=== PATIENT | female | born 1940 ===

== ENCOUNTER 2019-06-22 21:35 | Outpatient (REF) | payer MEDICARE, SELFPAY ==
[2019-06-22 19:45] LABS: Bilirubin Negative (Negative); Blood Trace-intact (Negative); Clarity Clear (Clear); Glucose Negative (Negative); Ketones Negative (Negative); Leukocyte Esterase Negative (Negative); Nitrite Negative (Negative); Urobilinogen 0.2 EU/dL (Up TO 0.2); pH 5.5 (5-8)
[2019-06-22 19:51] LABS: WBC Negative HPF (0-5)
[2019-06-22 19:52] LABS: Bacteria Rare HPF (Negative); Crystals Negative HPF (Negative); Epithelial Cells Negative HPF (Negative); Mucus Negative (Negative); Other Cells Negative (Negative); RBC 0-2 (0-2)
[2019-06-22 19:53] LABS: C & S Indicated? No; Casts Negative LPF (Negative)
== END 2019-06-22 21:55 ==
LOC: NCHCN 21:35
PROVIDERS: PCP Nurse Practitioner Family; Visit Provider Nurse Practitioner Family
DX: N89.8 Other specified noninflammatory disorders of vagina (principal); N39.0 Urinary tract infection, site not specified
CPT/HCPCS: 81003; 81015; 87480; 87510; 87660

== ENCOUNTER 2020-09-30 16:06 | Outpatient (REF) | payer MEDICARE, SELFPAY ==
[2020-09-30 19:14] LABS: TSH 2.55 uIU/mL (0.36-3.74)
== END 2020-09-30 16:07 | disposition home or self-care (01) ==
LOC: NCHCN 16:06
PROVIDERS: PCP Nurse Practitioner Family; Visit Provider Internal Medicine
DX: Z83.49 Family history of other endocrine, nutritional and metabolic diseases (principal); Z13.29 Encounter for screening for other suspected endocrine disorder
CPT/HCPCS: 84443

== ENCOUNTER 2022-11-30 19:08 | Outpatient (REF) | payer MEDICARE, SELFPAY ==
--- OUTSIDE RECORDS SUMMARY | 2022-11-30 19:11 | XMS_ITS | CCD ---
Author Name Unknown Address [address] [place] [address] [id number] Organization Unknown Address [address] [place] [address] [id number] Care Team Providers Care Substitute Bus Driver Name Role Phone ANNA PONCE Attending Physician [phone] Vital Signs Vital Sign Value Unit Date/Time Recent/Initial ? BMI (Body Mass Index) 26.07 kg/m^2 05/12/2022 14: 50 Initial VS Weight Measured 138 lbs 05/12/2022 14:50 Ini tial VS Height 61 in 05/12/2022 14:50 Initial VS BSA (Body Surface Area) 1.64 m^2 05/12/2022 1 4:50 Initial VS BP Systolic 102 mmHg 05/21/2022 11:06 Initial VS BP Diastolic 64 mmHg 05/21/2022 11:06 Initia l VS Respiratory Rate 16 bpm 05/21/2022 11:06 In itial VS Heart Rate 62 bpm 05/21/2022 11:06 Initial VS O2 % BldC Oximetry 92 % 05/21/2022 11:06 Initial VS Body Temperature 36 degrees 05/21/2022 11:06 In itial VS Allergies Allergy Code Allergy Type Reaction Status No Known Allergies 0 No known allergies Active Procedures Procedure Code Procedure Type Date Arthroplasty, Glenohumeral Joint; Total Shoulder 77080 CPT 05/21/2022 Muscle Transfer, Any Type, Shoulder/Upper Arm; Single 26482 CPT 05/21/2022 Injection Anesthetic Agent a nd/or Steroid; Brachial Plexus 14235 CPT 05/21/2022 Anesthesia, Open/Surg Arthro scopic Proc, Humeral Head & Neck, Sternoclav/Ac/Shoulder Jt; Replacemen 83619 CPT 05/21/2022 History of Immunizations Unknown or Not Available. Problems Unknown or Not Available. Results Unknown or Not Available. Active Medications Medications Administered During Visit Medication Dose Units Frequency Route Date/Time of Last Dose LACTATED RINGERS 1000ML 1000 ML X1 05/21/2022 06:59 CeFAZolin IVPB FROZEN PREMIX : 2GM/100ML 2 GM X1 05/21/2022 07:5 3 PREGABALIN CAPSULE: 50MG 100 MG X1 PO 05/21/2022 06:58 CELECOXIB CAPSULE: 100MG 200 MG X1 PO 05/21/2022 06:57 MIDAZOLAM INJ SDV: 2MG/2ML 2 MG X1 IVP 05/21/2022 07:27 ONDANSETRON INJ SDV: 4MG/2ML 4 MG PRN IN PACU X1 IVP 05/21/2022 12:34 Encounters Encounter Diagnosis Diagnosis Code Start Date Other specific arthropathies , not elsewhere classified, right shoulder [id number] 05/21/2022 Social History Smoking Status Code Start Date End Date Former smoker [id number] 08/16/1958 08/16/1980 Patient Decision Aids Unknown or Not Available. Discharge Instructions You were admitted to [facility] on 05/21/2022 06:11 with a principal diagnosis of Other specific arthropathies, not elsewhere classified, right shoulder You had the following procedures done:Arthroplasty, Glenohumeral Joint; Total ShoulderMuscle Transfer, Any Type, Shoulder/Upper Arm; SingleInjection Anesthetic Agent and/or Steroid; Brachial PlexusAnesthesia, Open/Surg Arthroscopic Proc, Humeral Head & Neck, Sternoclav/Ac/Shoulder Jt; Replacemen You were discharged from [facility] on 05/21/2022 14:25 Should you have any questions prior to discharge, please contact a member of your healthcare team. If you have left the hospital and have any questions, please contact your primary care physician. Chief Complaint and Reason For Visit Chief Complaint Date of Onset R SHOULDER TOTAL REVERSE W/ LATIS TENDON TRANSFER 150 MIN OP Function Status Unknown or Not Available. Plan of Care Unknown or Not Available. Referral/Transition of Care Unknown or Not Available.
--- OUTSIDE RECORDS SUMMARY | 2022-11-30 19:11 | XMS_ITS | CCD ---
Author Name Unknown Address [address] [place] [address] [id number] Organization Unknown Address [address] [place] [address] [phone] Care Team Providers Care Vineyard Supervisor Name Role Phone SERVANDO LOGAN Attending Physician [phone] SERVANDO LOGANing (Secondary) Physician [phone] Vital Signs Unknown or Not Available. Allergies Allergy Code Allergy Type Reaction Status No Known Allergies 0 No known allergies Active Procedures Unknown or Not Available. History of Immunizations Unknown or Not Available. Problems Unknown or Not Available. Results Unknown or Not Available. Active Medications Unknown or Not Available. Medications Administered During Visit Unknown or Not Available. Encounters Encounter Diagnosis Diagnosis Code Start Date Injury of right shoulder [id number] 08/20 Social History Smoking Status Code Start Date End Date Former smoker [id number] 08/16/1958 08/16/1980 Patient Decision Aids Unknown or Not Available. Discharge Instructions You were admitted to [facility] on 08/20/2021 14:50 with a principal diagnosis of Injury of right shoulder You were discharged from [facility] on 08/20/2021 00:00 Should you have any questions prior to discharge, please contact a member of your healthcare team. If you have left the hospital and have any questions, please contact your primary care physician. Chief Complaint and Reason For Visit Unknown or Not Available. Function Status Unknown or Not Available. Plan of Care Unknown or Not Available. Referral/Transition of Care Unknown or Not Available.
--- OUTSIDE RECORDS SUMMARY | 2022-11-30 19:11 | XMS_ITS | CCD ---
Author Name Unknown Address [address] [place] [address] [phone] Organization Unknown Address [address] [place] [address] [phone] Care Team Providers Care Slip Laster Name Role Phone ANNA PONCE Attending Physician [phone] Vital Signs Unknown or Not Available. Allergies Allergy Code Allergy Type Reaction Status No Known Allergies 0 No known allergies Active Procedures Unknown or Not Available. History of Immunizations Unknown or Not Available. Problems Unknown or Not Available. Results BASIC METABOLIC PANEL (BMP) - Collect Date/Time: 05/08/2022 13:50 Test Name Code Test Result Test Units Test Ref Rang e GLUCOSE 2345-7 104 mg/dL L=70 H=116 BUN 3094-0 18 mg/dL L=6 H=25 CREATININE 2160-0 0.93 mg/dL L=0.51 H=0.95 SODIUM SERUM 2951-2 137 mmol/L L=136 H=145 POTASSIUM SERUM 2823-3 4.0 mmol/L L=3.4 H=5 .2 CHLORIDE SERUM 2075-0 101 mmol/L L=96 H=110 CARBON DIOXIDE (CO2) 2028-9 29 mmol/L L=22 H=34 ANION GAP 17106-4 7.4 mmol/L CALCIUM SERUM 85449-6 9.3 mg/dL L=8.2 H=10. 2 AGE 81 years eGFR (non-Afr.Amer.) 07728-4 58 mL/min eGFR (Afr-Peruvian) 01019-7 70 mL/min C REACTIVE PROTEIN HIGH SENS ITIVITY* - Collect Date/Time: 05/08/2022 13:50 Test Name Code Test Result Test Units Test Ref Rang e CRP-HIGH SENS. 52188-8 3.54 mg/L L=0.00 H=3 .00 CRP-HIGH SENS 71192-8 0.35 mg/dL L=0.00 H=0. 30 CBC W/ DIFFERENTIAL* - [facility] ct Date/Time: 05/08/2022 13:50 Test Name Code Test Result Test Units Test Ref Rang e WBC 6690-2 3.77 th/cmm L=5.00 H=10.00 NEUT % 60.9 % L=40.0 H=80.0 LYMPH % 26.3 % L=10.0 H=50.0 MONO % 80222-3 9.0 % L=2.0 H=12.0 EOS % 2.7 % L=0.0 H=8.0 BASO % 0.8 % L=0.0 H=3.0 IG % 2514-8 0.3 % L=0.0 H=1.1 NRBC % 24498-8 0.0 % L=0.0 H=0.0 NEUT abs count 751-8 2.3 th/cmm L=1.6 H=8. 4 LYMPH abs count 731-0 1.0 th/cmm L=1.5 H=4 .0 MONO abs count 742-7 0.3 th/cmm L=0.2 H=1. 0 EOS abs count 711-2 0.1 th/cmm L=0.0 H=0.5 BASO abs count 704-7 0.0 th/cmm L=0.0 H=0. 2 IG abs count 79185-2 0.0 th/cmm L=0.0 H=0.1 NRBC abs count 93072-8 0.0 mil/cmm L=0.0 H=0. 0 RBC 789-8 3.68 mil/cmm L=3.90 H=5.40 HEMOGLOBIN 718-7 11.7 gm/dL L=12.0 H=16.0 HEMATOCRIT 4544-3 36 % L=37 H=47 MCV 787-2 97 fL L=82 H=92 MCH 785-6 31.8 pg L=27.0 H=31.0 MCHC 786-4 33.0 % L=32.0 H=36.0 RDW-SD 788-0 50.5 fL L=39.0 H=49.0 PLATELET COUNT 777-3 226 th/cmm L=150 H=45 0 SED RATE* - Collect Date/Fracisco e: 05/08/2022 13:50 Test Name Code Test Result Test Units Test Ref Rang e SED. RATE 4537-7 12 mm/hr L=0 H=30 MRSA/MSSA NASAL COMPLETE BY PCR* - Collect Date/Time: 05/08/2022 13:50 Test Name Code Test Result Test Units Test Ref Rang e MRSA 65865-4 NEGATIVE N/A Normal: Negati ve MSSA NEGATIVE N/A Normal: Negati ve Active Medications Unknown or Not Available. Medications Administered During Visit Unknown or Not Available. Encounters Encounter Diagnosis Diagnosis Code Start Date Encounter for other preprocedural examination Z0 1818 05/08/2022 Social History Smoking Status Code Start Date End Date Former smoker [id number] 08/16/1958 08/16/1980 Patient Decision Aids Unknown or Not Available. Discharge Instructions You were admitted to [facility] on 05/08/2022 13:20 with a principal diagnosis of Encounter for other preprocedural examination You had the following tests done:BASIC METABOLIC PANEL (BMP)C REACTIVE PROTEIN HIGH SENSITIVITY*CBC W/ DIFFERENTIAL*MRSA/MSSA NASAL COMPLETE BY PCR*SED RATE* You were discharged from [facility] on 05/08/2022 13:20 Should you have any questions prior to discharge, please contact a member of your healthcare team. If you have left the hospital and have any questions, please contact your primary care physician. Chief Complaint and Reason For Visit Chief Complaint Date of Onset L SHLDR ARTHRITIS PREOP BLUEPRINT Function Status Unknown or Not Available. Plan of Care Unknown or Not Available. Referral/Transition of Care Unknown or Not Available.
--- OUTSIDE RECORDS SUMMARY | 2022-11-30 19:11 | XMS_ITS | CCD ---
Author Name Unknown Address [address] [place] [address] [phone] Organization Unknown Address [address] [place] [address] [phone] Care Team Providers Care Horticultural Agent Name Role Phone EILEEN JOSEPH Attending Physician [phone] EILEEN JOSEPH Rounding (Secondary) Physician [phone] Vital Signs Unknown or Not Available. Allergies [...] Encounters Encounter Diagnosis Diagnosis Code Start Date Aftercare [id number] 06/02/2022 Social History Smoking Status Code Start Date End Date Former smoker [id number] 08/16/1956 08/16/1980 Patient Decision Aids Unknown or Not Available. Discharge Instructions You were admitted to [facility] on 06/02/2022 14:05 with a principal diagnosis of Aftercare following joint replacement surgery You were discharged from [facility] on 06/02/2022 00:00 Should you have any questions prior [...]
--- OUTSIDE RECORDS SUMMARY | 2022-11-30 19:11 | XMS_ITS | CCD ---
Author Name Unknown Address [address] [place] [address] [id number] Organization Unknown Address [address] [place] [address] [phone] Care Team Providers Care Associate Theatre Professor Name Role Phone SERVANDO LOGAN Attending Physician [phone] SERVANDO LOGANing (Secondary) Physician [phone] Vital Signs Unknown or Not Available. Allergies [...] Encounters Encounter Diagnosis Diagnosis Code Start Date Full thickness rotator cuff tear [id number] 10/15/2021 Social History Smoking Status Code Start Date End Date Former smoker [id number] 08/16/1958 08/16/1980 Patient Decision Aids Unknown or Not Available. Discharge Instructions You were admitted to [facility] on 10/15/2021 10:03 with a principal diagnosis of Complete rotator cuff tear or rupture of right shoulder, not specified as traumatic You were discharged from [facility] on 10/15/2021 00:00 Should you have any questions prior [...]
--- OUTSIDE RECORDS SUMMARY | 2022-11-30 19:11 | XMS_ITS | CCD ---
Author Name Unknown Address [address] [place] [address] [id number] Organization Unknown Address [address] [place] [address] [phone] Care Team Providers Care Sharepoint Solutions Developer Name Role Phone ANNA PONCE Attending Physician [phone] ANNA PONCE Rounding (Secondary) Physician [phone] Vital Signs Unknown or Not Available. Allergies [...] Encounters Encounter Diagnosis Diagnosis Code Start Date Shoulder joint prosthesis present [id number] 11/09/2022 Social History Smoking Status Code Start Date End Date Former smoker [id number] 08/16/1958 08/16/1980 Patient Decision Aids Unknown or Not Available. Discharge Instructions You were admitted to [facility] on 11/09/2022 12:35 with a principal diagnosis of Presence of right artificial shoulder joint You were discharged from [facility] on 11/09/2022 00:00 Should you have any questions prior [...]
--- OUTSIDE RECORDS SUMMARY | 2022-11-30 19:12 | XMS_ITS | Continuity of Care Document ---
Author Name Unknown Organization [facility] Address [address] [place] [address] Care Team Providers Care Environmental Services Specialist Name Role Phone Abhishek Morales Primary Care Physician Encounter [id number] Date(s): 05/21/22 - 06/26/[address] [address] Discharge Disposition: Home or Self Care Attending Physician: Laura Cavazos MD Admitting Physician: Laura Cavazos MD Referring Physician: Laura Cavazos MD Allergies, Adverse Reactions, Alerts No Known Medication Allergies Immunizations Given and Recorded Vaccine Date Status Refusal Reason influenza virus vaccine, inactivated 06/08/14 Deshawn rded influenza virus vaccine, inactivated 06/09/13 Deshawn rded influenza virus vaccine, inactivated 06/10/12 Deshawn rded influenza virus vaccine, inactivated 06/19/11 Deshawn rded influenza virus vaccine, inactivated 06/27/10 Deshawn rded influenza virus vaccine, inactivated 06/08/08 Deshawn rded influenza virus vaccine, inactivated 05/16/07 Deshawn rded influenza virus vaccine, inactivated 12/15/03 Deshawn rded influenza virus vaccine, inactivated 08/16/00 Deshawn rded zoster vaccine live 02/23/13 Recorded tetanus/diphth/pertuss (Tdap) adult/adol 01/26/12 Recorded pneumococcal 23-polyvalent vaccine 07/16/05 Record ed tetanus-diphth toxoids (Td) adult/adol 12/15/03 Re corded Social History Social History Type Response Sex Female Patient Care team information Care Team Personnel Name: Abhishek Morales MD Position: Physician Member Role: Primary Care Physician Address: Address: [facility] [address] [place] [address]- Care Team Related Persons Name: ARSEN CHOPRA Address: Home Name: DANIEL CHOPRA Address: Home [address], [place] [id number] Name: SAFIA CHOPRA Address: Home
--- OUTSIDE RECORDS SUMMARY | 2022-11-30 19:12 | XMS_ITS | CCD ---
Author Name Unknown Address [address] [place] [address] [phone] Organization Unknown Address [address] [place] [address] [phone] Care Team Providers Care Machine Maintenance Mechanic Name Role Phone ANNA PONCE Attending Physician [phone] ANNA PONCE Rounding (Secondary) Physician [phone] Vital Signs Unknown or Not Available. Allergies [...] Start Date Full thickness rotator cuff tear [id number] 01/28/2022 Social History Smoking Status Code Start Date End Date Former smoker [id number] 08/16/1958 08/16/1980 Patient Decision Aids Unknown or Not Available. Discharge Instructions You were admitted to [facility] on 01/28/2022 15:59 with a principal diagnosis of Complete rotator cuff tear or rupture of right shoulder, not specified as traumatic You were discharged from [facility] on 01/28/2022 00:00 Should you have any questions prior [...]
[2022-11-30 20:13] LABS: Anion Gap 5.7 mmol/L (3-11); BUN 16 mg/dL (7-18); CO2 29.3 mmol/L (21.0-32.0); CREATININE 1.1 mg/dL (0.55-1.02); Calcium 9.3 mg/dL (8.5-10.1); Calculated LDL 92 mg/dL (<100); Chloride 104 mmol/L (98-107); Cholesterol 187 mg/dL (<200); Glucose 100 mg/dL (74-106); HDL Cholesterol 62 mg/dL (40-60); Potassium 4.3 mmol/L (3.5-5.1); Sodium 139 mmol/L (136-145); Triglyceride 169 mg/dL (<150); Troponin I < 50 ng/L (<or=60)
== END 2022-11-30 19:09 | disposition home or self-care (01) ==
LOC: NCHCN 19:08
PROVIDERS: PCP Nurse Practitioner Family; Visit Provider Internal Medicine
DX: I10 Essential (primary) hypertension (principal); R07.89 Other chest pain; G45.8 Other transient cerebral ischemic attacks and related syndromes
CPT/HCPCS: 80048; 80061; 84484

== ENCOUNTER 2024-12-13 20:56 | Outpatient (REF) | payer MEDICARE, SELFPAY ==
[2024-12-13 21:32] LABS: Abs Immature Grans 0.01 10^3/uL (0.0-0.06); Absolute Basophil Count 0.03 10^3/uL (0.0-0.2); Absolute Eosinophil Count 0.07 10^3/uL (0.0-0.7); Absolute Monocyte Count 0.34 10^3/uL (0.1-0.8); Absolute Neutrophil Count 2.62 10^3/uL (1.2-6.7); Basophils % 0.7 %; Eosinophils % 1.7 %; HCT 33.7 % (36.0-46.0); HGB 10.9 g/dL (11.2-15.7); Immature Grans % 0.2 %; Lymphocytes % 24.6 %; MCH 31.3 pg (27.0-33.0); MCHC 32.3 % (32.0-36.0); MCV 97 fL (80-95); MPV 12.1 fL (8.0-11.0); Monocytes % 8.4 %; Neutrophils % 64.4 %; Platelet Count 242 10^3/uL (130-400); RBC 3.48 10^6/uL (3.93-5.22); RDW-SD 49.1 fL; WBC 4.07 10^3/uL (4.4-10.8)
[2024-12-13 21:50] LABS: ALT 26 U/L (14-59); AST 22 U/L (15-37); Albumin 3.8 g/dL (3.4-5.0); Alkaline Phosphatase 63 U/L (46-116); Anion Gap 6.6 mmol/L (3-11); BUN 25 mg/dL (7-18); Bilirubin, Total 0.6 mg/dL (0.2-1.0); CO2 28.4 mmol/L (21.0-32.0); CREATININE 1.3 mg/dL (0.55-1.02); Chloride 104 mmol/L (98-107); Estimated GFR 41.06 (mL/min/1.73m2); Glucose 155 mg/dL (74-106); Potassium 4.9 mmol/L (3.5-5.1); Sodium 139 mmol/L (136-145); TSH (W/Ref FT4) 3.91 uIU/mL (0.36-3.74)
[2024-12-13 22:06] LABS: FREE T4 0.64 ng/dL (0.76-1.46)
== END 2024-12-13 20:57 | disposition home or self-care (01) ==
LOC: NCHCN 20:56
PROVIDERS: PCP Internal Medicine; Visit Provider Physician Assistant
DX: I10 Essential (primary) hypertension (principal)
CPT/HCPCS: 80053; 84439; 84443; 85025